=== PATIENT | female | born 1950 | race Caucasian/White ===

== ENCOUNTER 2017-09-01 04:25 | Emergency (ER) | payer MEDICARE, OTHER ==
[~2017-09-01] VITALS: Ht 180.3 cm; Wt 77.3 kg
[2017-09-01 04:28] VITALS: BP 156/92
[2017-09-01] MEDS ORDERED: LIDOcaine Viscous 15ml cup MM PRN (04:50)
[2017-09-01] MEDS ORDERED: clindamycin 150mg capsule PO ONE (04:50)
[2017-09-01] MEDS ORDERED: LEVO25TA2 PO (04:53)
[2017-09-01] MEDS ORDERED: CLIN150C8 PO (04:53)
== END 2017-09-01 05:05 | disposition home or self-care (01) ==
LOC: ER 04:25
DX: S01.512A Laceration without foreign body of oral cavity, initial encounter (principal); Z88.2 Allergy status to sulfonamides; Z79.899 Other long term (current) drug therapy; W18.39XA Other fall on same level, initial encounter; Y93.89 Activity, other specified; Y92.89 Other specified places as the place of occurrence of the external cause; Y99.8 Other external cause status
CPT/HCPCS: 99283

== ENCOUNTER 2017-11-04 01:32 | Emergency (ER) | payer MEDICARE, BC ==
[~2017-11-04] VITALS: Ht 180.3 cm; Wt 124.0 kg
[~2017-11-04 01:32] MED LIST: CLIN150C8 PO
[2017-11-04] MEDS ORDERED: normal saline 1000ML IV soln IVB ONE ×2 (01:50→03:15)
[2017-11-04 02:18] LABS: BASOPHILS % (AUTO) 0.2 % (0-1); EOSINOPHILS # (AUTO) 0.2 X10'3 (0-0.9); EOSINOPHILS % (AUTO) 2.2 % (0-6); HEMATOCRIT 37.2 % (35.0-45.0); HEMOGLOBIN 12.9 g/dl (12.0-16.0); LYMPHOCYTES # (AUTO) 1.7 X10'3 (1.1-4.8); LYMPHOCYTES % (AUTO) 16.7 % (21-51); MEAN CORPUSCULAR HEMOGLOBIN 32.3 PG (27.0-31.0); MEAN CORPUSCULAR HGB CONC 34.7 % (33.0-36.5); MEAN CORPUSCULAR VOLUME 92.9 FL (78-98); MEAN PLATELET VOLUME 7.2 FL (7.4-10.4); MONOCYTES # (AUTO) 0.7 X10'3 (0-0.9); MONOCYTES % (AUTO) 6.4 % (2-12); NEUTROPHILS # (AUTO) 7.8 X10'3 (1.8-7.7); NEUTROPHILS % (AUTO) 74.5 % (42-75); PLATELET COUNT 358 X10'3 (140-440); RED CELL DISTRIBUTION WIDTH 16.3 % (11.5-14.5); WHITE BLOOD COUNT 10.5 X10'3 (4.5-11.0)
[2017-11-04 02:29] LABS: ALANINE AMINOTRANSFERASE 43 U/L (12-78); ALBUMIN 4.1 G/DL (3.4-5.0); ALKALINE PHOSPHATASE 89 IU/L (46-116); ANION GAP 14 (8-16); ASPARTATE AMINO TRANSFERASE 31 U/L (10-37); BILIRUBIN,TOTAL 0.4 MG/DL (0.1-1.0); BLOOD UREA NITROGEN 19 MG/DL (7-18); CALCIUM 9.2 MG/DL (8.5-10.1); CHLORIDE 93 MMOL/L (99-107); CREATININE 1.46 MG/DL (0.40-0.90); GLUCOSE 212 MG/DL (70-104); POTASSIUM 3.5 MMOL/L (3.5-5.1); SODIUM 130 MMOL/L (135-145); TOTAL CARBON DIOXIDE 23.3 MMOL/L (24-32); TOTAL PROTEIN 8.1 G/DL (6.4-8.2); eGFR 36 ML/MIN
[2017-11-04] MEDS ORDERED: POTA20TA19 PO (03:36)
[2017-11-04 03:46] LABS: CLARITY,URINE CLEAR (Clear); COLOR,URINE YELLOW (Yellow); GLUCOSE, URINE NEGATIVE (Neg); KETONES,URINE NEGATIVE (Neg); LEUKOCYTE ESTERASE ,URINE SMALL (Neg); NITRITES, URINE NEGATIVE (Neg); OCCULT BLOOD,URINE NEGATIVE (Neg); PH,URINE 6.5 (4.8-8.0); PROTEIN,URINE NEGATIVE (Neg); UROBILINOGEN,URINE 0.2 E.U/dL (0.2-1.0)
[2017-11-04 03:56] LABS: BACTERIA,URINE FEW /HPF (Neg); RBC,URINE 0-2 /HPF (0-2); SQUAMOUS EPITHELIAL CELL,UR FEW /LPF (FEW); UA COLLECTION TYPE CLN CATCH MIDSTREAM
[2017-11-04] MEDS ORDERED: CEPH500C5 PO (04:02)
[2017-11-04 04:05] VITALS: BP 171/92
== END 2017-11-04 04:12 | disposition home or self-care (01) ==
LOC: ER 01:32
DX: E86.0 Dehydration (principal); E87.6 Hypokalemia; N39.0 Urinary tract infection, site not specified; J45.909 Unspecified asthma, uncomplicated; E11.9 Type 2 diabetes mellitus without complications; F17.210 Nicotine dependence, cigarettes, uncomplicated; Z88.2 Allergy status to sulfonamides
CPT/HCPCS: 36415; 80053; 81001; 85025; 87088; 96360; 99284; J7030

== ENCOUNTER 2017-11-20 00:01 | Emergency (ER) | payer MEDICARE, MEDICAID ==
[~2017-11-20] VITALS: Ht 180.3 cm; Wt 98.6 kg
[~2017-11-20 00:01] MED LIST changes: +CEPH500C5 PO; +POTA20TA19 PO
[2017-11-20 00:10] VITALS: BP 142/67
[2017-11-20] MEDS ORDERED: TETanus/Pertussis (Acell)/Diphther VAC/PF (Tdap-Adult) 0.5ml syringe IM ONE (01:15)
[2017-11-20 01:52] LABS: BASOPHILS # (AUTO) 0.1 X10'3 (0-0.2); EOSINOPHILS # (AUTO) 0.2 X10'3 (0-0.9); EOSINOPHILS % (AUTO) 3.1 % (0-6); HEMATOCRIT 36.2 % (35.0-45.0); HEMOGLOBIN 12.5 g/dl (12.0-16.0); LYMPHOCYTES # (AUTO) 1.9 X10'3 (1.1-4.8); MEAN CORPUSCULAR HEMOGLOBIN 32.5 PG (27.0-31.0); MEAN CORPUSCULAR HGB CONC 34.4 % (33.0-36.5); MEAN CORPUSCULAR VOLUME 94.5 FL (78-98); MEAN PLATELET VOLUME 8.3 FL (7.4-10.4); MONOCYTES # (AUTO) 0.7 X10'3 (0-0.9); MONOCYTES % (AUTO) 9.6 % (2-12); NEUTROPHILS # (AUTO) 4.9 X10'3 (1.8-7.7); NEUTROPHILS % (AUTO) 62.3 % (42-75); PLATELET COUNT 348 X10'3 (140-440); RED BLOOD COUNT 3.83 X10'6 (4.20-5.60); RED CELL DISTRIBUTION WIDTH 13.8 % (11.5-14.5); WHITE BLOOD COUNT 7.8 X10'3 (4.5-11.0)
[2017-11-20 02:01] LABS: ALANINE AMINOTRANSFERASE 38 U/L (12-78); ALBUMIN 3.9 G/DL (3.4-5.0); ALKALINE PHOSPHATASE 75 IU/L (46-116); ANION GAP 7 (8-16); ASPARTATE AMINO TRANSFERASE 25 U/L (10-37); BILIRUBIN,TOTAL 0.2 MG/DL (0.1-1.0); BLOOD UREA NITROGEN 19 MG/DL (7-18); BUN/CREATININE RATIO 17.1 (6.6-38.0); CHLORIDE 98 MMOL/L (99-107); CREATININE 1.11 MG/DL (0.40-0.90); D-DIMER 0.54 MG/L FEU (0-0.50); GLUCOSE 121 MG/DL (70-104); POTASSIUM 3.8 MMOL/L (3.5-5.1); SODIUM 135 MMOL/L (135-145); TOTAL CARBON DIOXIDE 30.5 MMOL/L (24-32); TOTAL PROTEIN 7.8 G/DL (6.4-8.2); eGFR 49 ML/MIN
== END 2017-11-20 02:44 | disposition left against medical advice (07) ==
LOC: ER 00:02
DX: S20.319A Abrasion of unspecified front wall of thorax, initial encounter (principal); S60.512A Abrasion of left hand, initial encounter; S60.511A Abrasion of right hand, initial encounter; S61.401A Unspecified open wound of right hand, initial encounter; J45.909 Unspecified asthma, uncomplicated; E11.9 Type 2 diabetes mellitus without complications; Z88.2 Allergy status to sulfonamides; X58.XXXA Exposure to other specified factors, initial encounter; Y93.89 Activity, other specified; Y92.89 Other specified places as the place of occurrence of the external cause; Y99.8 Other external cause status
CPT/HCPCS: 36415; 71045; 80053; 83880; 85025; 85379; 90471; 90715; 93005; 99285

== ENCOUNTER 2018-01-14 03:58 | Emergency (ER) | payer MEDICARE, MEDICAID ==
[~2018-01-14] VITALS: Ht 180.3 cm; Wt 121.7 kg
[~2018-01-14 03:58] MED LIST changes: -POTA20TA19 PO
[2018-01-14 04:06] VITALS: BP 170/88
[2018-01-14] MEDS ORDERED: HYDR-4353 PO (04:28)
[2018-01-14] MEDS ORDERED: PENI500T2 PO (04:28)
== END 2018-01-14 04:41 | disposition home or self-care (01) ==
LOC: ER 03:59
DX: K04.7 Periapical abscess without sinus (principal); K02.9 Dental caries, unspecified; J45.909 Unspecified asthma, uncomplicated; E11.9 Type 2 diabetes mellitus without complications; F17.200 Nicotine dependence, unspecified, uncomplicated; Z98.890 Other specified postprocedural states; Z88.2 Allergy status to sulfonamides; Z79.899 Other long term (current) drug therapy
CPT/HCPCS: 99283

== ENCOUNTER 2018-02-20 18:24 | Emergency (ER) | payer MEDICARE, MEDICAID ==
[~2018-02-20] VITALS: Ht 180.3 cm; Wt 117.0 kg
[2018-02-20 18:30] VITALS: BP 116/68
[2018-02-20] MEDS ORDERED: ALBU6.7H INH (19:59)
[2018-02-20] MEDS ORDERED: PRED20TA PO (19:59)
== END 2018-02-20 20:06 | disposition home or self-care (01) ==
LOC: ER 18:24
DX: J22 Unspecified acute lower respiratory infection (principal); J45.909 Unspecified asthma, uncomplicated; E11.9 Type 2 diabetes mellitus without complications; F17.200 Nicotine dependence, unspecified, uncomplicated; Z88.2 Allergy status to sulfonamides; Z79.899 Other long term (current) drug therapy
CPT/HCPCS: 99283

== ENCOUNTER 2021-10-24 03:25 | Emergency (ER) | payer BC, MEDICAID ==
[~2021-10-24] VITALS: Ht 180.3 cm; Wt 97.7 kg
[~2021-10-24 03:25] MED LIST changes: +ALBU6.7H9 INH; -CEPH500C5 PO
[2021-10-24 03:44] VITALS: BP 150/70
== END 2021-10-24 04:32 | disposition left against medical advice (07) ==
LOC: ER 03:27
DX: R50.9 Fever, unspecified (principal); Z53.21 Procedure and treatment not carried out due to patient leaving prior to being seen by health care provider

== ENCOUNTER 2022-10-28 21:39 | Emergency (ER) | payer OTHER, MEDICAID ==
[~2022-10-28 21:39] MED LIST changes: +ALBU6.7H14 INH; -ALBU6.7H9 INH; +CLIN-214 PO; -CLIN150C8 PO
== END 2022-10-28 23:16 | disposition left against medical advice (07) ==
LOC: ER 21:44
DX: R50.9 Fever, unspecified (principal); R05.9 Cough, unspecified; R20.0 Anesthesia of skin; Z53.21 Procedure and treatment not carried out due to patient leaving prior to being seen by health care provider

== ENCOUNTER 2023-04-23 23:45 | Emergency (ER) | payer BC, MEDICAID ==
[~2023-04-23] VITALS: Ht 180.3 cm; Wt 127.4 kg
[2023-04-23 23:55] VITALS: BP 140/69; PULSE 89; RESP 18; TEMP 98; O2SAT 92
[2023-04-24] MEDS: morphine 2 MG/ML inj. syringe IM ONE (02:08)
[2023-04-24] MEDS: ondansetron 4mg rapidly disintigrating tab PO ONE (02:08)
[2023-04-24] MEDS: ibuprofen tablet 400 MG TABLET PO ONE (02:23)
== END 2023-04-24 02:24 | disposition left against medical advice (07) ==
LOC: ER 23:46
DX: M25.561 Pain in right knee (principal); E11.9 Type 2 diabetes mellitus without complications; J45.909 Unspecified asthma, uncomplicated; F32.A Depression, unspecified; Z98.890 Other specified postprocedural states; Z88.2 Allergy status to sulfonamides; Z79.899 Other long term (current) drug therapy; Z79.2 Long term (current) use of antibiotics
CPT/HCPCS: 73564; 99283

== ENCOUNTER 2024-04-21 04:49 | Emergency (ER) | payer BC, MEDICAID ==
[~2024-04-21] VITALS: Ht 180.3 cm; Wt 84.1 kg
[2024-04-21 04:53] VITALS: BP 156/47; PULSE 85; RESP 16; TEMP 98.1; O2SAT 94
== END 2024-04-21 07:09 | disposition left against medical advice (07) ==
LOC: ER 04:51
DX: M25.561 Pain in right knee (principal); K08.89 Other specified disorders of teeth and supporting structures; R50.9 Fever, unspecified; Z53.21 Procedure and treatment not carried out due to patient leaving prior to being seen by health care provider; Z88.2 Allergy status to sulfonamides

== ENCOUNTER 2024-08-20 04:38 | Emergency (ER) | payer BC, MEDICAID ==
[~2024-08-20] VITALS: Ht 180.3 cm; Wt 93.2 kg
[2024-08-20 04:48] VITALS: BP 130/70; PULSE 89; TEMP 98.9; O2SAT 94
[2024-08-20] MEDS ORDERED: HYDR-3965 PO (04:54)
[2024-08-20] MEDS ORDERED: AMOX-117 PO (04:54)
--- NOTE | 2024-08-20 04:55 | Physician Documentation ---
HPI ~ General Chief Complaint: Mouth Pain Stated Complaint: DANTAL PAIN Time Seen by MD: 04:51 Primary Medical Doctor: NONE History of Present Illness HPI Comment 74-year-old female with a known poor dentition presents for evaluation of dental pain and facial swelling in the left lower jaw. No obvious trigger provocation. The particular palliating or aggravating factors. Did not attempt to treat with any medication but use compresses without success. Similar to prior dental pain/dental abscess. Does not have a dental appointment. Denies any voice changes or drooling. Denies difficulty opening her mouth. No other concerns. Denies concerns for tobacco, alcohol or illicit substances use Medication Reconciliation Allergies: Coded Allergies: Sulfa (Sulfonamide Antibiotics) (Verified Allergy, Unknown, 04/21/24) Scheduled Albuterol Sulfate (Proventil Hfa), 2 PUFFS INH Q6H Clindamycin HCl (Clindamycin HCl CAPSULE), 3 CAP PO TID Clindamycin HCl (Clindamycin HCl CAPSULE), 1 CAP PO TID Past Medical History Past Medical History: Asthma, Diabetes, Thyroid (unspecified), Depression Past Surgical History: Other Past Family History: NONE Alcohol Use: None Drug Use: none Lives In: Home Review of Systems ROS 10 point review of systems was performed and unless noted above in HPI is negative for acute process/complaint. Physical Exam Vital Signs: Temperature: 98.9, Source: Oral, Heart Rate: 89, Respiratory Rate: 18, BP: 130/70, Pulse Oximetry: 94, Weight: 93.180 Oxygen Flow Rate: 0 Physical Exam Physical examination: GENERAL: Awake, alert, oriented, GCS 15, no apparent distress, non-toxic appearing, answers questions, follows commands appropriately. Examined in triage HEENT: Atraumatic, normocephalic, pupils equal, extraocular muscles intact Active gross movements, sclerae anicteric, mucus membranes moist, no stridor. NECK: Midline, no JVD CARDIOVASCULAR: Good skin perfusion without evidence of pallor, mottling. PULMONARY: Nonlabored, symmetric chest rise, no audible wheezing, no accessory muscle use, no respiratory distress, speaking in full sentences. GASTROINTESTINAL: Not distended. NEUROLOGIC: Lucid with normal mental status. Normal facial symmetry. Moves all extremities symmetrically and with purpose. No truncal ataxia. Speech is fluid without evidence of dysarthria or aphasia, no focal deficits appreciated. EXTREMITIES: Acute deformities Skin: warm, dry PSYCHIATRIC: Normal affect, normal insight, normal concentration. Focused exam: [] Very poor dentition noted, no obvious fluctuance. No trismus. No drooling. No hot potato voice. No floor of the mouth elevation. No brawny submandibular erythema. Medical Decision Making Findings Facility Status: ED Holds, [facility] process The plan was discussed with the patient, who demonstrates clear understanding of the plan and is in agreement with the plan unless otherwise noted in the chart. All questions have been answered, all concerns were addressed unless otherwise documented. I was available throughout their ED stay for frequent reassessment and questions. Differential Diagnoses (considered and possible or likely): [Dental pain, dental infection, dental abscess, less likely osteomyelitis, clinically not consistent with Dale's angina] ??Differential Diagnoses (considered and unlikely, not requiring evaluation currently): [See above] MDM Data Please see [facility] for the following: Independent Historians and external Records Review. Historian: [Patient] Independent Historians: ?[None] Medication Management: [Reviewed medication list] Social History and determinants: [Reviewed] Please see the body of the note for the following: Any independent interpretations of ECG, imaging studies. All vitals signs/haemodynamics, ordered tests were independently reviewed and interpreted by myself. Nursing triage complaint and vitals reviewed, additional nursing notes were reviewed as available and I agree unless otherwise noted or documented in contradiction in the chart Vital Signs: Independently reviewed Labs: Independently interpreted Imaging: Independently interpreted Old Medical Records: Independently reviewed, see [facility] for relevant summary and information Additionally notably showing: [Hemodynamically stable] Tests considered but not ordered include: [Hematologic workup and imaging has been considered but does not appear to be necessary given clinical nature of diagnosis] Social Determinants of Health Impact: Patient was evaluated in [facility], or [facility] [place] to healthcare due to below par ratio of patient to medical providers. [] Comorbid Conditions Impacting Present Evaluation and Care/Treatment: [History of poor dentition] Management Discussions with other Healthcare Providers: [None] Treatment and Disposition Medication Management (Given or considered): [Pain management and antibiotics]. See EMR for details Consideration for Hospitalization/Escalation/Deescalation of Care: Admission for observation has been considered, [however the patient is able to tolerate p.o., their symptoms are controlled, they are able to rely on oral medications, and their chief complaint/diagnosis can be managed on outpatient basis.] ?ED Course:?[No clinical deterioration, no airway compromise] ?Shared decision making:?[Patient is hemodynamically stable for discharge home with follow with their primary care provider. [ ] Specific and cautious return precautions provided and discussed with full understanding. Any incidental findings were also discussed and follow up recommendations given. [] All questions answered. Patient/family were able to verbalize back return precautions. Patient/family agree to plan. Copies of imaging and laboratory studies were provided.] Code status:?FULL Please see the full Electronic Medical Record for full details of nursing documentation, medications list, other records of complete past medical history and conditions, vital signs, laboratory studies, and any radiologic study interpretations by radiologists. Portions of this note were completed using dr oakley dictation software and as a result there may exist minor errors in spelling. I have reviewed elements of past family and social history and agree as included in note. Departure Disposition: 01 HOME / SELF CARE / HOMELESS Impression: Primary Impression: Dental infection Condition: Improved Discharge Instructions: Dental Abscess Referrals: NO PRIMARY CARE PROVIDER (PCP) Prescriptions Hydrocodone Bit/Acetaminophen 5/325 MG ([place] 5/325 MG) 5 Mg/325 Mg Tablet 1 TAB PO Q6H PRN for pain, #14 TAB Prov: RAFAEL SANCHEZ DO 08/20/24 Amox Tr/Potassium Clavulanate (Augmentin 875-125 Tablet) 1 Each Tablet 1 TAB PO Q12H for 10 Days, #20 TAB Prov: RAFAEL SANCHEZ DO 08/20/24 Education Educated: Patient Educated regarding: diagnosis, treatment, prognosis, need for follow up Signature Scribe Signature: No scribe Attestation: This note accurately reflects clinical decisions, work performed by myself, DO LAURA Carpenter NICHOLAS M DO Aug 20, 2024 04:55
[2024-08-20 05:08] VITALS: RESP 18
[2024-08-20] MEDS: HYDROcodone/acetaminophen 5mg/325mg tablet PO ONE (05:08)
[2024-08-20] MEDS: amox tr/potassium clavulanate 875/125mg TAB PO ONE (05:09)
== END 2024-08-20 05:10 | disposition home or self-care (01) ==
LOC: ER 04:39
DX: K04.7 Periapical abscess without sinus (principal); E11.9 Type 2 diabetes mellitus without complications; J45.909 Unspecified asthma, uncomplicated; F32.A Depression, unspecified; Z88.2 Allergy status to sulfonamides; Z88.8 Allergy status to other drugs, medicaments and biological substances
CPT/HCPCS: 99283

== ENCOUNTER 2024-09-10 03:41 | Emergency (ER) | payer BC, MEDICAID ==
[~2024-09-10] VITALS: Ht 180.3 cm; Wt 105.6 kg
[~2024-09-10 03:41] MED LIST changes: +HYDR-3965 PO
[2024-09-10] MEDS: ondansetron 4mg rapidly disintigrating tab PO ONE (04:20)
[2024-09-10] MEDS: ketorolac trometh 15mg/ml vial 15 MG/ML ML IM ONE (04:20)
--- NOTE | 2024-09-10 04:22 | Physician Documentation ---
History of Present Illness ~ Chief Complaint: Knee Pain Stated Complaint: KNEE PAIN Time Seen by MD: 04:01 Primary Medical Doctor: NONE Mode of Arrival: POV, Ambulatory HPI Patient presents to the emergency room with right knee pain. Patient has history of knee problems. She said she slipped on a wood floor striking the anterior part of her right knee. Since that time she has had significant swelling. Taken occasional Tylenol for pain. She states she went to [facility] where an x-ray was performed and was told that it was negative and that she would need an MRI. Tetanus witin 5 years: No Medication Reconciliation Allergies: Coded Allergies: Sulfa (Sulfonamide Antibiotics) (Verified Allergy, Unknown, 08/20/24) Scheduled Albuterol Sulfate (Proventil Hfa), 2 PUFFS INH Q6H Clindamycin HCl (Clindamycin HCl CAPSULE), 3 CAP PO TID Clindamycin HCl (Clindamycin HCl CAPSULE), 1 CAP PO TID Scheduled PRN Hydrocodone Bit/Acetaminophen 5/325 MG (Holt 5/325 MG), 1 TAB PO Q6H PRN for pain Past Medical History Past Medical History: Asthma, Diabetes, Thyroid (unspecified), Depression Past Surgical History: Other Past Family History: NONE Alcohol Use: None Drug Use: none Lives In: Home Review of Systems ROS All review of systems negative except as per HPI Physical Exam Vital Signs: Temperature: 97.5, Source: Temporal, Heart Rate: 88, Respiratory R ate: 19, BP: 121/53, Pulse Oximetry: 100, Weight: 105.600 Physical Exam General: Patient is awake, alert, oriented x4 in no acute distress Head: Normocephalic and atraumatic. Eyes: Conjunctival normal. EOMI. PERRL. ENT: Mucous membranes moist. Neck: Supple, trachea is midline. Chest: Clear to auscultation bilaterally without rales, rhonchi, or wheezes. There is no accessory muscle use or retractions. Cardiac: RRR without murmurs, gallops, or rubs. Extremities: Left lower extremity normal, right lower extremity with diffuse swelling to right knee with no erythema Progress Results/Orders Results/Orders Completed Orders - RONN MARTINEZ MD Ketorolac Trometh 15mg/Ml Vial (Toradol (09/10/24 04:20) Acetaminophen 325mg Tablet (Tylenol Tabl (09/10/24 04:20) Ondansetron Disint. Tablet (Zofran Odt T (09/10/24 04:20) Hydrocodone/Apap 5/325mg Tab (Holt /32 (09/10/24 04:20) Triamcinolone Acet 40mg/Ml Inj (Kenalog- (09/10/24 04:25) Medications Received in ER Medications (Trade) Dose Ordered Sig/Eduardo Route PRN Reason Start Time Stop Time Status Last Admin Dose Admin (Tylenol tablet) 650 mg ONCE ONCE PO 09/10/24 04:20 09/10/24 04:21 DC 09/10/24 04:45 650 MG Vital Signs 09/10/24 09/10/24 03:52 04:07 Temp 97.5 Pulse 92 88 Resp 16 19 B/P (MAP) 110/65 121/53 (75) Pulse Ox 96 100 Medical Decision Making Findings Patient is demonstrates very poor insight into taking care of her knee. She is refusing pain medicine because she is worried when it wears off she will still have pain and will not have the answers that she is looking for. Explained to her that we do not do emergent MRIs in the emergency room and that regardless of her diagnosis we would still have to treat her pain. Offered ultrasound however she is declining would just like a referral. Knee pain that has chronic with acute exacerbation from recent fall. As she reports he has already had an x-ray and was told that has normal at [facility] I will not repeat an x-ray. Departure Disposition: HOME / SELF CARE / HOMELESS Impression: Primary Impression: Knee pain Condition: Stable Discharge Instructions: Acute Knee Pain, Adult Additional Instructions: Follow up with your doctor. We would not do emergent MRIs in the emergency room of your knee and this is likely what you need. Referrals: NO PRIMARY CARE PROVIDER (PCP) VIVIANA MANUEL Jr., MD Education Educated: Patient Educated regarding: diagnosis, treatment, need for follow up Signature Scribe Signature: No scribe Attestation: The note accurately reflects work and decisions made by me.Ronn Martinez MD 09/10/24 05:33 RONN MARTINEZ MD Sep 10, 2024 04:22
[2024-09-10] MEDS: triamcinolone acetonide 40mg/ml inj IM ONE (04:25)
[2024-09-10] MEDS: HYDROcodone/acetaminophen 5mg/325mg tablet PO ONE (05:36)
[2024-09-10 05:47] VITALS: BP 110/87; PULSE 87; RESP 19; TEMP 97.5; O2SAT 100
== END 2024-09-10 05:48 | disposition home or self-care (01) ==
LOC: ER 03:42
DX: M25.561 Pain in right knee (principal); J45.909 Unspecified asthma, uncomplicated; E11.9 Type 2 diabetes mellitus without complications; F32.A Depression, unspecified; Z88.2 Allergy status to sulfonamides; Z79.899 Other long term (current) drug therapy; W01.0XXA Fall on same level from slipping, tripping and stumbling without subsequent striking against object, initial encounter; Y93.89 Activity, other specified; Y92.89 Other specified places as the place of occurrence of the external cause; Y99.8 Other external cause status
CPT/HCPCS: 99284